=== PATIENT | male | born 1965 | race Two or more races ===

== ENCOUNTER 2023-03-29 16:23 | Emergency (ER) | payer SELFPAY ==
[~2023-03-29] VITALS: Ht 152.4 cm; Wt 50.2 kg
[2023-03-29 18:50] VITALS: BP 124/70; PULSE 105; TEMP 97.9
[2023-03-29] MEDS ORDERED: ALBUTEROL SULF 2.5 MG/0.5ML(0.5%) NEB SOLN NEB ONE (19:15)
[2023-03-29] MEDS ORDERED: IPRATROPIUM BROM 0.5 MG/2.5ML INH SOL NEB ONE (19:15)
[2023-03-29] MEDS ORDERED: DexAMETHasone SOD PHOS 10MG/1ML VIAL INJ IM ONE (19:15)
[2023-03-29] MEDS ORDERED: cefTRIAXone SOD 1,000 MG VL IM ONE (19:15)
[2023-03-29 19:18] VITALS: RESP 19; O2SAT 95
[2023-03-29] MEDS ORDERED: PRED20TA2 PO (20:18)
[2023-03-29] MEDS ORDERED: BENZLOZ2 MT (20:18)
[2023-03-29] MEDS ORDERED: BENZ200C64 PO (20:18)
[2023-03-29] MEDS ORDERED: ALBU108A5 IN (20:18)
[2023-03-29] MEDS ORDERED: CLIN-188 PO (20:18)
== END 2023-03-29 20:25 | disposition home or self-care (01) ==
LOC: ER 16:23 → EDBD 16:23 → ER 20:23
DX: J20.9 Acute bronchitis, unspecified (principal); J03.90 Acute tonsillitis, unspecified; Z79.899 Other long term (current) drug therapy
CPT/HCPCS: 71045; 94640; 96372; 99284; J0696; J1100; J7644

== ENCOUNTER 2023-03-30 22:04 | Emergency (ER) | payer SELFPAY ==
[~2023-03-30] VITALS: Ht 152.4 cm; Wt 50.0 kg
[~2023-03-30 22:04] MED LIST: ALBU108A5 IN; BENZ200C64 PO; BENZLOZ2 MT; CLIN-188 PO; PRED20TA2 PO
[2023-03-30 22:20] VITALS: BP 133/93; PULSE 103
[2023-03-30 22:27] VITALS: RESP 16; O2SAT 96
== END 2023-03-30 22:47 | disposition home or self-care (01) ==
LOC: ER 22:04
DX: J20.9 Acute bronchitis, unspecified (principal); E11.9 Type 2 diabetes mellitus without complications; Z98.890 Other specified postprocedural states; Z79.899 Other long term (current) drug therapy